=== PATIENT | female | born 1995 | race Caucasian/White ===

== ENCOUNTER 2025-08-13 07:40 | Inpatient (IN) ==
--- NOTE | 2025-08-13 08:08 | History & Physical Report ---
Date of Service August 13, 2025 Assessment & Plan (1) Encounter for induction of labor: (2) Gestational diabetes: Plan 29 y/o at 37w /7 presents this morning for induction of labor. complicated by GDM. Has had episodes of visual changes/floater. BPs have been relatively well-controlled. Today BP 128/78. Pre-eclampsia and HELLP labs within normal range. GBS pending Rh(+), rubella immune pitocin ordered wyatt balloon if needed IV fluids GBS swab pending. Penicillin ordered epidural if desired AROM when indicated anticipate . Admission and Anticipated Discharge Date Admission Date: August 13, 2025 History of Present Illness Chief Complaint: induction of labor Primary Care Provider: DONNA Chavez Carmela is a 29 y/o at 37w 09/09 with MICKIE 09/03/25 as determined by LMP who presents today for induction of labor. complicated by GDM. endorses good movement. denies contractions, vaginal bleeding, and loss of fluid OB Labs: Blood Type O Positive 01/23/25 Antibody Screen NEGATIVE 01/23/25 Hgb 10.8 g/dl (12.0-16.0) L 06/26/25 Hct 32.4 % (37.0-47.0) L 06/26/25 MCV 88.8 fL (80.0-100.0) 06/26/25 Plt Count 204 K/uL (130-400) 06/26/25 Rubella IgG Antibody Immune (Immune) 01/23/25 Treponema pallidum Ab Negative (Negative) 06/12/25 Hep Bs Antigen Negative (Negative) 01/23/25 Hepatitis C Antibody Negative (Negative) 01/23/25 HIV 1&2 Ab/P24 Ag 4thGn Negative (Negative) 01/23/25 Glucose 1 Hr 50 gm 158 mg/dl (70-130) H 03/19/25 OB Optional Labs: Chlamydia trachomatis RNA Not Detected (NotDetected) 01/23/25 Neisseria gonorrhoeae RNA Not Detected (NotDetected) 01/23/25 Thyroid Stimulating Hormone (TSH) 1.946 uIu/ml (0.300-4.500) 07/03/22 Allergies Allergy/AdvReac Type Severity Reaction Status Date / Time No Known Allergies Allergy Verified 08/11/25 13:18 Home Medications Medication Instructions Recorded Confirmed Type acetone (urine) test (Ketone Urine #50 ea 04/03/25 08/11/25 Rx Test strips) blood sugar diagnostic (Accu-Chek #150 ea 04/03/25 08/11/25 Rx Guide test strips) blood-glucose meter (Accu-Chek #1 ea 04/03/25 08/11/25 Rx Guide Glucose Meter) lancets (Accu-Chek Fastclix Lancet #100 ea 04/03/25 08/11/25 Rx Drum) prenat.vits,katerina,[id number] 1 tab PO DAILY 08/04/25 08/13/25 History Patient History Medical History (Updated 08/13/25 @ 08:13 by Marie Sr DO) Gestational diabetes ACL (anterior cruciate ligament) tear History of tachycardia History of COVID-2020, no residual symptoms Hypertension hx, no meds currently Acid reflux disease hx Depression with anxiety hx Surgical History S/P arthroscopic reconstruction of ACL of right knee using quadriceps tendon autograft s/p Right Knee Arthroscopy, Autograft Quadricep Tendon Anterior Cruciate Ligament Reconstruction with Internal Brace, Medial Meniscal Repair Surgeon: Jose Antonio Hall MD Side: Right 07/30/24 History of wisdom tooth extraction Family History Grandmother (Maternal) Diabetes Other Omphalocele Renal failure Denies family history of Ovarian cancer Prostate cancer Myocardial infarction Breast cancer Colorectal cancer Social History Smoking Status: Former smoker Tobacco Type: Cigarettes Age Started Using Tobacco: 19; Age Quit Using Tobacco: 28; packs per day: 0.5; Cigarettes Per Day: 5-7; Second Hand Exposure: Yes; Do You Dip or Chew Tobacco: No; Hx Alcohol Use: Yes Alcohol Intake Frequency Comment: 1 drink weekly Hx Substance Use: No Preferred Language: Nepali Communication Ability: Effective Visual Impairment: No Limitations Hearing Ability: Normal Registered Phlebotomist Part Time Required: No Beliefs That Will Affect Care: None marital status: marital status details: Gonzalo (27) [phone] Current Living Situation: Spouse and Family Current Living Situation Comment: Lives at home with and 9y/o son current occupational status: employed 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 Denies breast pain. Denies dysuria. Denies headache or changes in vision. Physical Exam Physical Exam: General: Alert, oriented. No acute distress. Cardiac: Regular rate and rhythm, no murmurs/rubs/gallops. Respiratory: CTA BL w/o wheezing, rales or rhonchi. No increased work of breathing Abdomen: soft, gravid, normal to inspection, cephalic position Lower Extremities: No lower extremity edema or swelling. No deep calf pain. Results & Data Vital Signs (Past 12 Hours) Vital Signs Pulse BP 08/13/25 07:51 106 H 128/78 Supervising Physician Co-Signing Physician Notes Patient seen and evaluated agree with above findings and plan. GBS returned negative and no treatment indicated. Patient denying any preeclampsia symptoms and labs and blood pressures have been within normal range.
[2025-08-13] MEDS ORDERED: PENICILLIN GK 6 MU in DEXTROSE 5% 250 ML IV STA (08:11)
[2025-08-13] MEDS ORDERED: CALCIUM CARBONATE 500 MG CHEWABLE TAB PO PRN (08:11)
[2025-08-13] MEDS ORDERED: OXYTOCIN 30 UNITS/NSS 30 UNITS/500 ML BAG IV PRN (08:11)
[2025-08-13] MEDS ORDERED: LIDOCAINE 1% LOCAL 20 ML VIAL INFIL PRN (08:11)
[2025-08-13] MEDS ORDERED: ACETAMINOPHEN 500 MG TAB PO PRN (08:11)
[2025-08-13 08:43] LABS: Hematocrit (blood only) 33.9 % (37.0-47.0); Hemoglobin 11.5 g/dL (12.0-16.0); Mean Corpuscular Hemoglobin 28.9 pg (25.0-34.0); Mean Corpuscular Volume 85.2 fL (80.0-100.0); Platelet Count 206 K/uL (130-400); RDW Standard Deviation 42.7 fL (36.4-46.3); Red Blood Count 3.98 M/uL (4.20-5.40); White Blood Count 12.64 K/ul (4.8-10.8)
[2025-08-13 09:00] LABS: Alanine Aminotransferase 9 U/L (7-52)
[2025-08-13] MEDS: LACTATED RINGER'S 1,000 ML IV PRN (09:26)
[2025-08-13] MEDS: OXYTOCIN 30 UNITS/NSS 30 UNITS/500 ML BAG IV PRN (09:27)
[2025-08-13] MEDS ORDERED: PENICILLIN GK 3 MU in DEXTROSE 5% 100 ML IV PRN (11:11)
--- NOTE | 2025-08-13 15:49 | Anesthesiology Consultation ---
Date of Service August 13, 2025 Assessment & Plan Chart Review Chart Review: Acceptable Risk for Labor Epidural Consults Requested none History Height/Weight Height: 5 ft 3 in Weight: 99.5 kg Allergies Allergy/AdvReac Type Severity Reaction Status Date / Time No Known Allergies Allergy Verified 08/11/25 13:18 Medications Home Medications Medication Instructions Recorded Confirmed Last Taken acetone (urine) test (Ketone Urine #50 ea 04/03/25 08/11/25 Unknown Test strips) blood sugar diagnostic (Accu-Chek #150 ea 04/03/25 08/11/25 Unknown Guide test strips) blood-glucose meter (Accu-Chek #1 ea 04/03/25 08/11/25 Unknown Guide Glucose Meter) lancets (Accu-Chek Fastclix Lancet #100 ea 04/03/25 08/11/25 Unknown Drum) prenat.vits,katerina,[id number] 1 tab PO DAILY 08/04/25 08/13/25 08/12/25 Active Medications Generic Name Dose Route Start Last Admin Trade Name Freq PRN Reason Stop Dose Admin Lactated Ringer's 1,000 mls @ 125 mls/hr 08/13/25 08:11 08/13/25 15:25 Lr IV 08/15/25 08:10 999 mls/hr .Q8H PRN Administration L&D Protocol Protocol Oxytocin 30 units in 500 mls @ 16 mls/hr 08/13/25 08:16 08/13/25 14:15 Pitocin 30 Units/Nss IV 08/15/25 08:15 0.96 units/hr .Q24H PRN 16 mls/hr Labor Induction/Augmentation Titration Protocol 0.96 UNITS/HR Past Medical History Medical History (Updated 08/13/25 @ 08:13 by Marie Sr DO) Gestational diabetes ACL (anterior cruciate ligament) tear History of tachycardia History of COVID-19 2020, no residual symptoms Hypertension hx, no meds currently Acid reflux disease hx Depression with anxiety hx Past Family History Family History Grandmother (Maternal) Diabetes Other Omphalocele Renal failure Denies family history of Ovarian cancer Prostate cancer Myocardial infarction Breast cancer Colorectal cancer Past Surgical History Surgical History S/P arthroscopic reconstruction of ACL of right knee using quadriceps tendon autograft s/p Right Knee Arthroscopy, Autograft Quadricep Tendon Anterior Cruciate Ligament Reconstruction with Internal Brace, Medial Meniscal Repair Surgeon: Jose Antonio Hall MD Side: Right 07/30/24 History of wisdom tooth extraction Social History Smoking Status: Former smoker Smoking cigarettes per day: 5-7 Do You Dip or Chew Tobacco: No Hx Alcohol Use: Yes alcohol intake frequency: holidays/special occasions only Hx Substance Use: No substance use type: former substance user and marijuana Last Used Substance Other:: used to have medical card, none for "awhile" Physical Exam Vital Signs Last Vital Signs Temp 36.6 C 08/13/25 15:05 Pulse 91 H 08/13/25 15:45 Resp 18 08/13/25 15:05 BP 121/79 08/13/25 15:07 Pulse Ox 97 08/13/25 15:45 Testing Laboratory Results 08/13/25 08:26 08/13/25 08:26 Blood Type O Positive 08/13/25 08:26 Antibody Screen NEGATIVE 08/13/25 08:26 08/13/25 08:15 POC Glucose 117 H
[2025-08-13] MEDS ORDERED: ROPIVACAINE 0.5% PF 5 MG/ML 20 ML VIAL EPI PRN (15:50)
[2025-08-13] MEDS ORDERED: diphenhydrAMINE 50 MG/ML VIAL IV PRN (15:50)
[2025-08-13] MEDS ORDERED: BUPIVACAINE 0.25% PF 30 ML VIAL EPI PRN (15:50)
[2025-08-13] MEDS ORDERED: NALOXONE HCL 1 MG in SODIUM CHLORIDE 0.9% 1,000 ML IV PRN (15:50)
[2025-08-13] MEDS ORDERED: NALBUPHINE HCL INJ 10 MG/ML AMP IV PRN (15:50)
[2025-08-13] MEDS ORDERED: LIDOCAINE 2% MPF LOCAL 5 ML VIAL EPI PRN (15:50)
[2025-08-13] MEDS ORDERED: SODIUM CHLORIDE 0.9% PF INJ 10 ML VIAL EPI PRN (15:50)
[2025-08-13] MEDS ORDERED: NALOXONE HCL 0.4 MG/1 ML VIAL/CARP IV PRN (15:50)
[2025-08-13] MEDS: fentANYL 2 MCG/ML BUPIVacaine 0.125%-NSS 100ML BAG ONE (16:13)
[2025-08-13] MEDS: LIDOCAINE 2%/EPINEPHRINE 1:200,000 20 ML PF ONE (16:16)
[2025-08-13] MEDS: BUPIVACAINE 0.25% PF 30 ML VIAL EPI STA (16:17)
[2025-08-13] MEDS: BUPIVACAINE 0.25% PF 30 ML VIAL ONE (16:17)
[2025-08-13] MEDS: SODIUM CHLORIDE 0.9% PF INJ 10 ML VIAL ONE (16:17)
[2025-08-13] MEDS: LIDOCAINE 2%/EPINEPHRINE 1:200,000 20 ML PF EPI STA (16:18)
[2025-08-13] MEDS: SODIUM CHLORIDE 0.9% PF INJ 10 ML VIAL EPI STA (16:18)
--- NOTE | 2025-08-13 19:01 | Labor Progress Brief Note ---
Date of Service August 13, 2025 Subjective Note pertains to a patient encounter at around 5 PM. Presented to evaluate patient for attempted rupture after receiving epidural. We attempted rupture earlier in the day although due to a severely anterior cervix and discomfort with attempted rupture patient opted to have epidural placed prior to proceeding with rupture. Patient comfortable at time of evaluation Assessment & Plan (1) Encounter for induction of labor: Plan: Progressing slowly. Artificial rupture of membranes for clear fluid. Category 1 tracing. Vitals within normal limits. (2) Gestational diabetes: Gestational diabetes mellitus control: diet-controlled Trimester: third trimester Qualified Code(s): O24.410 - Gestational diabetes mellitus in , diet controlled (3) Mild preeclampsia: Trimester: third trimester Qualified Code(s): O14.03 - Mild to moderate pre-eclampsia, third trimester Admission and Anticipated Discharge Date Admission Date: August 13, 2025 Physical Exam Genitourinary: OB Exam Abdomen: + vertex Manual OB Exam: + cervical dilation 3 cm, + cervical effacement 50%, + station -2 and + amniotic fluid (AROM) clear OB Exam Monitor Tracing: + external FHT monitor used, + external uterine monitor used, + category I and + normal FHT variability Results & Data Vital Signs (Past 12 Hours) Vital Signs Temp Pulse Resp BP Pulse Ox 08/13/25 18:45 79 99 08/13/25 18:40 78 98 08/13/25 18:39 84 112/60 08/13/25 18:35 81 98 08/13/25 18:30 81 18 99 08/13/25 18:25 76 99 08/13/25 18:24 83 110/59 L 08/13/25 18:20 82 99 08/13/25 18:15 84 100 08/13/25 18:11 82 117/70 08/13/25 18:10 83 98 08/13/25 18:05 81 98 08/13/25 18:00 90 18 99 08/13/25 17:56 86 106/61 08/13/25 17:55 85 98 08/13/25 17:50 80 99 08/13/25 17:45 86 100 08/13/25 17:40 87 100 08/13/25 17:39 83 127/68 08/13/25 17:35 88 99 08/13/25 17:30 88 16 99 08/13/25 17:25 86 129/71 99 08/13/25 17:20 86 99 08/13/25 17:15 84 97 08/13/25 17:10 98 08/13/25 17:10 87 08/13/25 17:10 86 100/50 L 08/13/25 17:05 87 99 08/13/25 17:00 36.7 C 89 16 98 08/13/25 16:57 86 90 08/13/25 16:55 99 08/13/25 16:55 88 08/13/25 16:55 83 123/64 08/13/25 16:50 85 99 08/13/25 16:45 86 99 08/13/25 16:40 83 99 08/13/25 16:38 86 124/70 08/13/25 16:35 87 98 08/13/25 16:30 110 H 18 100 08/13/25 16:29 99 H 120/68 08/13/25 16:25 95 H 97 08/13/25 16:22 90 116/59 L 08/13/25 16:20 97 H 108/54 L 98 08/13/25 16:19 92 H 116/55 L 08/13/25 16:16 88 114/56 L 08/13/25 16:15 98 H 97 08/13/25 16:14 96 H 109/53 L 08/13/25 16:12 100 H 95/54 L 08/13/25 16:10 97 H 97 08/13/25 16:08 99 H 123/70 08/13/25 16:06 92 H 125/67 08/13/25 16:05 94 H 97 08/13/25 16:00 104 H 98 08/13/25 15:55 100 H 98 08/13/25 15:50 92 H 97 08/13/25 15:45 91 H 97 08/13/25 15:40 97 H 97 08/13/25 15:35 92 H 98 08/13/25 15:30 94 H 97 08/13/25 15:25 92 H 97 08/13/25 15:20 90 96 08/13/25 15:15 85 98 08/13/25 15:10 89 98 08/13/25 15:07 88 121/79 08/13/25 15:05 18 08/13/25 15:05 36.6 C 18 08/13/25 13:55 90 114/62 08/13/25 13:00 18 08/13/25 13:00 36.7 C 18 08/13/25 11:00 36.8 C 91 H 18 110/57 L 08/13/25 09:15 18 08/13/25 09:15 36.9 C 18 08/13/25 09:14 89 134/83 08/13/25 07:51 37.1 C 106 H 18 128/78 08/13/25 07:50 37.1 C 18 Coding Level of Care Code None Diagnoses Encounter for induction of labor Z34.90 Diet controlled gestational diabetes mellitus (GDM) in third trimester O24.410 Gestational diabetes mellitus control: diet-controlled Trimester: third trimester Mild pre-eclampsia in third trimester O14.03 Trimester: third trimester
[2025-08-13] MEDS: fentANYL 2 MCG/ML BUPIVacaine 0.125%-NSS 100ML BAG EPI PRN (23:52)
[2025-08-14] MEDS ORDERED: OXYTOCIN 30 UNITS/NSS 30 UNITS/500 ML BAG IV PRN (02:33)
[2025-08-14] MEDS ORDERED: BENZOCAINE 20% SPRY 85 APPLN/85 GM CAN EXT PRN (02:33)
[2025-08-14] MEDS ORDERED: HYDROCORTISONE ACETATE 25 MG SUPP PR PRN (02:33)
--- NOTE | 2025-08-14 02:33 | Delivery Summary ---
Vaginal Delivery Summary Date of Service August 14, 2025 Vaginal Delivery Summary Patient progressed to 10 cm dilated, 100% effaced, +2 station and pushed over intact perineum with epidural anesthesia and delivered a viable with weight and Apgars pending. Head of the delivered without difficulty quickly followed by shoulders and body. Upon delivery was noted to have moderate tone but without spontaneous cry. stimulation and resuscitation was initiated after about 40 seconds of delayed cord clamping without spontaneous cry the cord was then doubly clamped and cut. taken to the waiting nursery staff and spontaneous cry was noted soon after. Attention was turned to delivery of the placenta which delivered intact with three-vessel cord with gentle cord traction. Inspection perineum vagina cervix there is noted to be no lacerations. Sponge and instrument counts are correct at the completion of the case. Both mother and stable in the immediate postdelivery timeframe. [facility] Vaginal Delivery Charge Delivery Type Details: [facility]
[2025-08-14] MEDS: DIPHTHER/TETAN/PERTUS Vaccine (Tdap, Adol/Adult) 0.5mL IM ONE (03:11)
[2025-08-14] MEDS: ACETAMINOPHEN 325 MG TAB PO PRN (04:10)
[2025-08-14] MEDS: IBUPROFEN 600 MG TAB PO PRN (04:10)
[2025-08-14] MEDS: DOCUSATE SODIUM 100 MG CAP PO SCH (07:20)
[2025-08-14] MEDS: PRENATAL VITAMIN 1 TAB PO SCH (07:20)
[2025-08-14] MEDS: FERROUS SULFATE 325 MG TAB PO SCH (08:51)
--- NOTE | 2025-08-14 09:07 | Anesthesia Procedure Note ---
Date of Service August 14, 2025 Anesthesia Post Epidural Note Vital Signs Vital Signs: Temp Pulse Resp BP Pulse Ox O2 Del Method 98.1 F 92 H 16 117/69 97 Room Air 08/14/25 07:00 08/14/25 07:00 08/14/25 07:00 08/14/25 07:00 08/14/25 07:00 08/14/25 07:00 Pain Intensity Lower Abdomen: Pain Intensity: 3 Notes Mental Status: alert / awake / arousable and participated in evaluation Nausea / Vomiting: adequately controlled Pain: adequately controlled Airway Patency, RR, SpO2: stable & adequate BP & HR: stable & adequate Hydration State: stable & adequate Neuraxial Anesthesia: was administered and sensory block is resolving Anesthetic Complications: no major complications apparent and Pt Satisfied with anesthetic care Epidural: Removed without complications and With tip intact
[2025-08-14 23:17] VITALS: TEMP 98.1
--- NOTE | 2025-08-15 07:15 | Obstetrical Progress Note ---
Date of Service August 15, 2025 Assessment & Plan (1) state: Recovered well, desires D/C home today. Subjective Ambulation: ambulating normally Voiding: no voiding problems Passing Gas:: Yes Diet Tolerance:: regular diet Lochia:: Small Feeding Type:: breast feeding Physical Exam Constitutional WD/WN, vitals as above Eyes PERRL, conjunctivae normal, anicteric sclerae Neck normal visual inspection Respiratory normal respiratory effort and able to speak in complete sentences; no respiratory distress and no labored breathing Cardiovascular Rate/Rhythm: regular rate and regular rhythm Extremities: no edema Chest (Breasts) Chest: normal inspection of chest Gastrointestinal (Abdomen) Inspection/Auscultation: abdomen normal to inspection Soft, postgravid Psychiatric A+Ox3, euthymic affect Genitourinary OB Exam Abdomen: + fundal height Fundus: + firm and + relation to umbilicus (fundus just below umbilicus); not tender Results & Data Vital Signs (Past 12 Hours) Vital Signs Temp Pulse Resp BP Pulse Ox O2 Del Method 08/14/25 23:15 98.1 F 86 18 124/67 97 Room Air
[2025-08-15 10:39] VITALS: BP 118/74; PULSE 83; RESP 16; O2SAT 98
== END 2025-08-15 12:30 | disposition home or self-care (01) | DRG 807 ==
LOC: 4S1 07:40 → 4E2 08-14 04:57